=== PATIENT | female | born 2005 ===

== ENCOUNTER → 2024-11-19 | Outpatient (CLI) | payer SELFPAY ==
[2024-11-19 19:44] LABS: Candida glabrata-krusei, PCR NOT DETECTED (NOT DETECT)
[2024-11-19 21:23] LABS: Bacterial Vaginosis PCR Positive (NEGATIVE); Candida Group, PCR DETECTED (NOT DETECT)
== END ==
LOC: LAB SHORT 15:05 → LAB 15:05
PROVIDERS: Advanced Practice Midwife
DX: N76.0 Acute vaginitis (principal)
CPT/HCPCS: 81515

== ENCOUNTER → 2025-01-09 | Outpatient (CLI) | payer OTHER | END | disposition home or self-care (01) | LOC: LAB SHORT 16:58 → LAB 16:58 | DX: R39.9 Unspecified symptoms and signs involving the genitourinary system (principal) | CPT/HCPCS: 87077; 87086; 87186 ==